=== PATIENT | female | born 1995 | race American Indian/Alaskan Native ===

== ENCOUNTER 2018-07-15 06:16 | Emergency (ER) | payer MEDICAID ==
[2018-07-15 06:32] VITALS: TEMP 98.3
--- NOTE | 2018-07-15 07:53 | ED PDOC ---
Arrival/HPI - General Chief Complaint: Female Genitourinary Time Seen by Provider: 07/15/18 07:16 Historian: Patient - History of Present Illness Narrative History of Present Illness (Text): 07/15/18 07:16 23 year old female, with no significant past medical history and gestation of 15 weeks, presents to the Emergency department for evaluation of abdominal cramping and spotting since this morning. Patient informs a transient episode of abdominal cramping associated with mild spotting this morning, unfamiliar to symptoms throughout her . Patient reports having an US performed prior, which shows appropriate gestation with no significant findings. Patient denies any other associated somatic complaints. Patient denies any fevers, chills, headache, dizziness, chest pain, shortness of breath, dyspnea on exertion, cough, nausea, vomiting, diarrhea, back pain, neck pain, dysuria, hematuria, urinary output changes or any other complaints. Time/Duration: Prior to Arrival Symptom Onset: Gradual Symptom Course: Improving Quality: Cramping Activities at Onset: Light Context: Home Past Medical History - Provider Review Nursing Documentation Reviewed: Yes - Infectious Disease Hx of Infectious Diseases: None - Cardiac Hx Cardiac Disorders: No - Psychiatric Hx Substance Use: No - Anesthesia Hx Anesthesia: No Family/Social History - Physician Review Nursing Documentation Reviewed: Yes Family/Social History: Unknown Family HX Smoking Status: Never Smoked Hx Alcohol Use: No Hx Substance Use: No Allergies/Home Meds Allergies/Adverse Reactions: Allergies No Known Allergies Allergy (Verified 07/15/18 06:31) Review of Systems - Physician Review All systems were reviewed & negative as marked: Yes - Review of Systems Constitutional: absent: Fevers Respiratory: absent: SOB, Cough Cardiovascular: absent: Chest Pain Gastrointestinal: Abdominal Pain. absent: Diarrhea, Nausea, Vomiting Genitourinary Female: Vaginal Bleeding (Vaginal spotting). absent: Dysuria, Hematuria, Urine Output Changes Musculoskeletal: absent: Back Pain, Neck Pain Neurological: absent: Headache, Dizziness Physical Exam - Physical Exam Narrative Physical Exam (Text): 07/15/18 07:16 Gen: VS reviewed, alert, well developed, well nourished, nontoxic, mild distress. ENT: normal pharynx. Eye: EOMI, PERRL. Neck: no JVD, supple, no adenopathy. CV: regular rate, regular rhythm, no rubs, no murmur, no gallops, S1, S2, pulses equal and strong. Pulm: no distress, clear to auscultation, no wheeze, no rhonchi, breath sounds equal, no rales. Abd: soft, nontender, no guarding, no rebound, no rigidity, normal bowel sounds. Ext: no edema. Skin: good color, no rash, no cyanosis. Psych: responds appropriately to questions, normal affect. Neuro: oriented x 3, CN2-12 intact grossly, motor intact, sensation intact. Vital Signs Reviewed: Yes Vital Signs Temp Pulse Resp BP Pulse Ox 07/15/18 06:31 98.3 F 85 17 103/68 99 Temperature: Afebrile Blood Pressure: Normal Pulse: Regular Respiratory Rate: Normal Appearance: Positive for: Well-Appearing, Non-Toxic, Comfortable Pain Distress: None Mental Status: Positive for: Alert and Oriented X 3 Medical Decision Making ED Course and Treatment: 07/15/18 07:16 Impression: 23 year old female presents to the Emergency department complaining of abdominal cramping and vaginal spotting since this morning. Plan: -- Labs -- Urinalysis -- US -- Reassess and disposition Prior Visits: Notes and results from previous visits were reviewed. Progress Notes: 07/15/18 10:19 2nd trimester spotty vaginal bleeding, viable at 17 weeks, no irritative voiding symptoms, will empirically tx for bacteruria. patient will keep upcoming appt with presentation designer. - RAD Interpretation Radiology Orders: 07/15/18 07:16 OB TRANSVAGINAL [US] Stat - Scribe Statement The provider has reviewed the documentation as recorded by the Scribe Enoch Mace. All medical record entries made by the Scribe were at my direction and p ersonally dictated by me. I have reviewed the chart and agree that the record accurately reflects my personal performance of the history, physical exam, medical decision making, and the department course for this patient. I have also personally directed, reviewed, and agree with the discharge instructions and disposition. Disposition/Present on Arrival - Present on Arrival Any Indicators Present on Arrival: No History of DVT/PE: No History of Uncontrolled Diabetes: No Urinary Catheter: No History of Decub. Ulcer: No History Surgical Site Infection Following: None - Disposition Have Diagnosis and Disposition been Completed?: Yes Diagnosis: Threatened , Bacteria in urine Disposition: HOME/ ROUTINE Disposition Time: 10:20 Patient Plan: Discharge Patient Problems: Current Active Problems Problem Status Onset Bacteria in urine Acute Threatened Acute Condition: STABLE Discharge Instructions (ExitCare): Asymptomatic Bacteriuria, Threatened Miscarriage (DC) Additional Instructions: KATELYN WHITTINGTON, thank you for letting us take care of you today. Your provider was Dr. Vin Jha and you were treated for bleeding / cramps. The emergency medical care you received today was directed at your acute symptoms. If you were prescribed any medication, please fill it and take as directed. It may take several days for your symptoms to resolve. Return to the Emergency Department if your symptoms worsen, do not improve, or if you have any other problems. Please contact your doctor or call one of the physicians/clinics you have been referred to that are listed on the Patient Visit Information form that is included in your discharge packet. Bring any paperwork you were given at discharge with you along with any medications you are taking to your follow up visit. Our treatment cannot replace ongoing medical care by a primary care provider outside of the emergency department. Thank you for allowing the [facility] team to be part of your care today. If you had an X-Ray or CT scan: A Radiologist will review the ED reading if any change in treatment is needed we will contact you. If you had a blood, urine, or wound culture: It will take several days for the results, if any change in treatment is needed we will contact you. If you had an STI test: It will take 48 hours for the results. Please call after 1 week if you have not heard back. Prescriptions: Cephalexin [Keflex] 500 mg PO QID 7 Days #28 capsule Forms: [employer] (Sinhala)
[2018-07-15 08:27] LABS: BASO # 0.01 K/mm3 (0.0-2.0); BASO % 0.1 % (0.0-3.0); EOS # 0.1 (0.0-0.7); GRAN # 3.91 (1.4-6.5); GRAN % 58.1 % (50.0-68.0); HEMOGLOBIN 11.9 g/dL (12.0-16.0); LYMPH # 2.3 (1.2-3.4); LYMPH % 33.7 % (22.0-35.0); MEAN CELL VOLUME 89.4 fl (80.0-105.0); MEAN CORPUSCULAR HEMOGLOBIN 30.1 pg (25.0-35.0); MEAN CORPUSCULAR HGB CONC 33.6 g/dl (31.0-37.0); MEAN PLATELET VOLUME 9.2 fl (7.0-11.0); MONO # 0.5 (0.1-0.6); MONO % 7.1 % (1.0-6.0); RBC 3.96 10^6/uL (3.5-6.1); RED CELL DISTRIBUTION WIDTH 12.7 % (11.5-14.5); WHITE BLOOD COUNT 6.7 10^3/uL (4.5-11.0)
[2018-07-15 08:32] LABS: URINE APPEARANCE CLEAR (CLEAR); URINE BILIRUBIN NEGATIVE (NEGATIVE); URINE BLOOD TRACE-INTACT (NEGATIVE); URINE COLOR YELLOW (YELLOW); URINE GLUCOSE (UA) NEGATIVE (NEGATIVE); URINE LEUKOCYTE ESTERASE NEGATIVE Leu/uL (NEGATIVE); URINE PROTEIN NEGATIVE mg/dL (<30 mg/dL); URINE UROBILINOGEN 0.2 E.U./dL (<1 E.U./dL)
[2018-07-15 08:46] LABS: URINE BACTERIA MOD (NEG); URINE WBC 0 - 2 /hpf (0-6)
[2018-07-15 10:20] VITALS: BP 111/57; PULSE 94; RESP 18; O2SAT 100
--- NOTE | 2018-07-15 10:35 | US ---
Date of service: 07/15/2018 HISTORY: early gestation, bleeding, viability COMPARISON: None available. TECHNIQUE: Transpelvic ultrasound FINDINGS: UTERUS: There is a single viable intrauterine in a cephalic presentation. The placenta is anterior and clear of the os. heart rate is 138. BPD equals 17 weeks 4 days Abdominal circumference equals 17 weeks Head circumference equals 17 weeks 3 days Femur length equals 17 weeks 5 days. Mean ultrasound age is 17 weeks 3 days Estimated date of delivery 12/20/2018 ENDOMETRIUM: Measures mm in diameter. Unremarkable. CERVIX: The cervix is 3.6 cm in length. The bladder was incompletely filled. This produces some echogenic artifact within the cervix. RIGHT OVARY: Measures 3.2 x 1.6 x 3.1 cm. No solid mass. Normal flow. LEFT OVARY: Measures 3.9 x 3.1 x 3.6 cm. No solid mass. Normal flow. FREE FLUID: No significant free fluid noted. OTHER FINDINGS: None. IMPRESSION: Single viable intrauterine with a gestational age of 17 weeks 3 days. No evidence of hemorrhage
== END 2018-07-15 10:33 | disposition home or self-care (01) ==
LOC: ED 06:16 → MERGE 06:16 → ED 10:33
DX: O20.0 Threatened abortion (principal); O28.8 Other abnormal findings on antenatal screening of mother; Z3A.17 17 weeks gestation of pregnancy